=== PATIENT | female | born 1985 | race Caucasian/White ===

== ENCOUNTER 2017-05-18 11:52 | Emergency (ER) | payer MEDICAID ==
[~2017-05-18] VITALS: Ht 152.4 cm; Wt 81.6 kg
[~2017-05-18 11:52] MED LIST: BUPR75TA4
[2017-05-18] MEDS ORDERED: KETOROLAC TROMETH 60MG/2ML VIAL IM ONE (14:45)
[2017-05-18 14:50] VITALS: BP 136/98
== END 2017-05-18 15:20 | disposition home or self-care (01) ==
LOC: ER 11:52
DX: K04.7 Periapical abscess without sinus (principal); F17.210 Nicotine dependence, cigarettes, uncomplicated; Z83.3 Family history of diabetes mellitus; Z82.49 Family history of ischemic heart disease and other diseases of the circulatory system
CPT/HCPCS: 96372; 99283; J1885

== ENCOUNTER 2024-02-22 22:13 | Inpatient (IN) | payer MEDICAID, OTHER ==
[~2024-02-22] VITALS: Ht 152.4 cm; Wt 77.6 kg
--- NOTE | 2024-02-22 22:43 | ED.PDOC ---
GI ASSESSMENT HPI Comments 38-year-old female came to ER due to the abdominal pain. Patient was apparently well until 12 noon today, when patient developed sudden onset epigastric abdominal pain in, sharp, intermittent, radiatong to both her flanks and to her back. Noted to have nausea, vomiting, with multiple episodes of diarrhea. Denies any history of abdominal surgeries Chief Complaint: Abdominal Pain Time Seen by MD: 22:42 Primary Care Provider: AUDIE Boo Notes: Nurses Notes Allergies: Coded Allergies: NO KNOWN ALLERGIES (Unverified , 08/23/10) Home Meds Reported Medications Bupropion Hcl (Wellbutrin) 75 Mg Tab 01/19/12 Information Source: Patient Mode of Arrival: Ambulatory Timing: Hours Duration: Intermittent Quality: Aching Vomitus: Watery Stool: Loose, Watery Recent: None Recent Hx of: None Pain Location: Epigastric Associated sign and symptoms: Nausea, Vomiting, Diarrhea, Abdominal Pain, Other (back pain) Past Medical History PAST MEDICAL HISTORY: Anxiety, Depression, HTN Surgical History: Tubal Ligation NOZZLEMAN History: No Pertinent NOZZLEMAN History Family History Family History: No family hx of Cancer, No family hx of DM, No family hx of HTN Social History Smoker: Cigarettes, Less Than 1 Pack/Day Alcohol: Occasionally Drugs: Denies Drug Use Lives In: Home Constitutional: reports: diaphoresis, weakness; denies: chills, fatigue, fever, malaise, sweats, others EENTM: denies: blurred vision, double vision, ear bleeding, ear discharge, ear drainage, ear pain, ear ringing, eye pain, eye redness, hearing loss, mouth pain, mouth swelling, nasal discharge, nose bleeding, nose congestion, nose pain, photophobia, tearing, throat pain, throat swelling, voice changes, others Respiratory: denies: cough, hemoptysis, orthopnea, SOB at rest, shortness of breath, SOB with excertion, stridor, wheezing, others Cardiovascular: denies: chest pain, dizzy spells, diaphoresis, Dyspnea on exertion, edema, irregular heart beat, left arm pain, lightheadedness, palpitations, PND, syncope, others Gastrointestinal: reports: abdominal pain, diarrhea, nausea, vomiting; denies: abdomen distended, blood streaked bowels, constipated, dysphagia, difficulty swallowing, hematemesis, melena, poor appetite, poor fluid intake, rectal bleeding, rectal pain, others Genitourinary: denies: abnormal vagina bleeding, burning, dyspareunia, dysuria, flank pain, frequency, hematuria, incontinence, pain, , vagina discharge, urgency, others Neurological: denies: dizziness, fainting, headache, left sided numbness, left sided weakness, numbness, paresthesia, pre-existing deficit, right sided numbness, right sided weakness, seizure, speech problems, tingling, tremors, weakness, others Musculoskeletal: denies: back pain, gout, joint pain, joint swelling, muscle pain, muscle stiffness, neck pain, others Integumetry: denies: bruises, change in color, change in hair/nails, dryness, laceration, lesions, lumps, rash, wounds, others Allergic/Immunocompromised: denies: Difficulty Healing, Frequent Infections, Hives, Itching, others Hematologic/Lymphatic: denies: anemia, blood clots, easy bleeding, easy bruising, swollen glands, others Endocrine: denies: excessive hunger, excessive sweating, excessive thirst, excessive urination, flushing, intolerance to cold, intolerance to heat, unexplained weight gain, unexplained weight loss, others Psychiatric: denies: anxiety, bipolar disorder, depression, hopeless, panic disorder, schizophrenia, sleepless, suicidal, others Physical Exam General Appearance: Moderate Distress, Normal HEENT: Normal ENT Inspection, Pharynx Normal, TMs Normal Neck: Full Range of Motion, Non-Tender, Normal, Normal Inspection Respiratory: Chest Non-Tender, Lungs Clear, No Accessory Muscle Use, No Respiratory Distress, Normal Breath Sounds Cardiovascular: No Edema, No JVD, No Murmur, No Gallop, Normal Peripheral Pulses, Tachycardia Breast Exam: Deferred Gastrointestinal: Epigastric, No Organomegaly, No Pulsatile Mass, Normal Bowel Sounds, Soft, Tenderness Genitalia: Deferred Pelvic: Deferred Rectal: Deferred Extremities: No calf tenderness, Normal capillary refill, Normal inspection, Normal range of motion, Non-tender, No pedal edema Musculoskeletal : Apperance: Normal Neurologic: Alert, broadcast maintenance engineer II-XII nml as Tested, No Motor Deficits, Normal Affect, Normal Mood, No Sensory Deficits Cerebellar Function: Normal Reflexes: Normal Skin: Dry, Normal Color, Warm Peripheral Pulses: 3+ Radial (R), 3+ Radial (L) Lymphatic: No Adenopathy Was a procedure done? Was a procedure done?: No GI differential Dx Differential Diagnosis: Cholecystitis, Constipation, Diverticular disease, Gastritis/PUD, Gastroenteritis, Pancreatitis, UTI, Urolithiasis X-Ray, Labs, Meds, VS Vital Signs Date Time Temp Pulse Resp B/P (MAP) Pulse Ox O2 Delivery O2 Flow Rate FiO2 02/23/24 06:46 129 18 99 Room Air 02/23/24 06:44 98.6 129 18 157/114 (128) 99 98.6 02/23/24 02:00 98.6 128 16 149/112 (124) 96 98.6 02/23/24 02:00 128 16 96 Room Air* 0 21 02/22/24 22:25 97.7 129 13 135/100 (112) 100 Lab Test 02/23/24 03:15 02/22/24 22:56 02/22/24 22:44 Range/Units Urine Color Light-yellow Yellow Urine Clarity Clear Clear Urine pH 5.5 5.0-9.0 Urine Specific Har[place] > 1.035 H 1.001-1.035 Urine Protein Negative Negative Urine Ketones Negative Negative Urine Blood Negative Negative /uL Urine Nitrite Negative Negative Urine Bilirubin Negative Negative Urine Urobilinogen Normal Negative mg/dL Urine Leukocyte Esterase Negative Negative /uL Urine RBC 3 0 - 4 /hpf Urine WBC 1 0 - 5 /hpf Urine Squamous Epithelial Cells Few <5 /hpf Urine Bacteria None seen None Seen /hpf Urine Glucose Normal Normal mg/dL Urine Test Negative Negative White Blood Count 18.1 H 4.4-10.8 10^3/uL Red Blood Count 4.93 4.0-5.20 10^6/uL Hemoglobin 14.5 12.2-16.2 g/dL Hematocrit 45.3 36.0-46.0 % Mean Corpuscular Volume 91.9 80.0-100.0 fL Mean Corpuscular Hemoglobin 29.5 28.0-32.0 pg Mean Corpuscular Hemoglobin Concent 32.1 32.0-36.0 g/dL Red Cell Distribution Width 16.0 H 11.8-14.3 % Platelet Count 358 140-450 10^3/uL Mean Platelet Volume 7.1 6.9-10.8 fL Neutrophils (%) (Auto) 94.5 H 37.0-80.0 % Lymphocytes (%) (Auto) 2.2 L 10.0-50.0 % Monocytes (%) (Auto) 2.9 0.0-12.0 % Eosinophils (%) (Auto) 0.2 0.0-7.0 % Basophils (%) (Auto) 0.2 0.0-2.0 % Neutrophils # (Auto) 17.1 H 1.6-8.6 10 ^3/uL Lymphocytes # (Auto) 0.4 0.4-5.4 10 ^3/uL Monocytes # (Auto) 0.5 0-1.3 10 ^3/uL Eosinophils # (Auto) 0 0-0.8 10 ^3/uL Basophils # (Auto) 0 0-0.2 10 ^3/uL Nucleated Red Blood Cells 0.0 % Sodium Level 141 136-145 mmol/L Potassium Level 3.7 3.5-5.1 mmol/L Chloride Level 114 H 98-107 mmol/L Carbon Dioxide Level 20 20-31 mmol/L Anion Gap 7 5-15 Blood Urea Nitrogen 10 9-23 mg/dL Creatinine 0.92 0.550-1.02 mg/dL Glomerular Filtration Rate Calc 81 >90 mL/min BUN/Creatinine Ratio 10.9 10.0-20.0 Serum Glucose 120 H 74-106 mg/dL Lactic Acid Level 1.9 0.4-2.0 mmol/L Calcium Level 10.4 8.7-10.4 mg/dL Total Bilirubin 0.7 0.2-1.0 mg/dL Aspartate Amino Transferase (AST) 14 13-40 U/L Alanine Aminotransferase (ALT) 17 7-40 U/L Alkaline Phosphatase 94 46-116 U/L Total Protein 7.4 5.7-8.2 g/dL Albumin 4.7 3.2-4.8 g/dL Lipase 32 12-53 U/L Influenza Type A Antigen Negative Negative Influenza Type B Antigen Negative Negative SARS-CoV-2 Antigen (Rapid) Negative NEGATIVE Current Medications Medications (Trade) Dose Ordered Sig/Samuel Route Start Time Stop Time Status Last Admin Sodium Chloride 1,000 ml @ 1,000 mls/hr Q1H ONCE IV 02/22/24 22:45 02/22/24 23:44 DC 02/23/24 02:15 Pantoprazole Sodium (Protonix) 40 mg ONCE ONCE IV 02/22/24 22:45 02/22/24 22:46 DC 02/23/24 02:14 Ondansetron HCl (Zofran) 4 mg ONCE ONCE IV 02/22/24 22:45 02/22/24 22:46 DC 02/23/24 02:14 Ketorolac Tromethamine (Toradol Injection) 15 mg ONCE ONCE IV 02/22/24 22:45 02/22/24 22:46 DC 02/23/24 02:14 Patient alert. Complaining of abdominal pain. Continues to have pain. Vitals stable. Answering all questions. Evaluated the patient. Abdomen is soft diffusely tender. Lactic acid within normal limits. Lipase within normal limits. WBC elevated. Hemoglobin within normal limits. CT scan reviewed shows colitis. Was given Rocephin. Was given Flagyl. Reviewed her previous history. Explained to the patient. Time of 1ST Reevaluation: 22:37 Reevaluation 1ST: Unchanged Patient Education/Counseling: Diagnosis, Treatment, Prognosis Family Education/Counseling: No Family Present Departure 1 Departure Time of Disposition: 07:05 Impression: Primary Impression: Acute abdominal pain Additional Impression: Non-specific colitis Disposition: ADMITTED INPATIENT Admit to: Med Surg Condition: Guarded Critical Care Note Critical Care Time?: No Stability Stability form required: No Heart Score Heart Score: Heart Score Response (Comments) Value History N/A 0 EKG N/A 0 Age N/A 0 Risk Factors N/A 0 Troponin N/A 0 Total 0 I personally scribed for CESAR FLORES MD ([email or web address]) on 02/22/24 at 22:43. Electronically submitted by Oniel Martin ([email or web address]). CESAR FLORES MD Feb 22, 2024 22:43 IVONNE DASILVA MD Feb 23, 2024 07:05
[2024-02-22 23:14] LABS: Rapid Influenza A Negative (Negative); Rapid Influenza B Negative (Negative)
[2024-02-22 23:15] LABS: COVID19 ANTIGEN SOFIA FIA NEGATIVE (NEGATIVE)
[2024-02-22 23:19] LABS: Basophils # (auto) 0 10 ^3/uL (0-0.2); Basophils % (auto) 0.2 % (0.0-2.0); Eosinophils # (auto) 0 10 ^3/uL (0-0.8); Eosinophils % (auto) 0.2 % (0.0-7.0); Hematocrit 45.3 % (36.0-46.0); Hemoglobin 14.5 g/dL (12.2-16.2); Lymphocytes # (auto) 0.4 10 ^3/uL (0.4-5.4); Lymphocytes % (auto) 2.2 % (10.0-50.0); Mean Corpuscular Hemoglobin 29.5 pg (28.0-32.0); Mean Corpuscular Hgb Conc. 32.1 g/dL (32.0-36.0); Mean Corpuscular Volume 91.9 fL (80.0-100.0); Monocytes # (auto) 0.5 10 ^3/uL (0-1.3); Monocytes % (auto) 2.9 % (0.0-12.0); Neutrophils # (auto) 17.1 10 ^3/uL (1.6-8.6); Neutrophils % (auto) 94.5 % (37.0-80.0); Platelet Count (auto) 358 10^3/uL (140-450); Red Blood Cells 4.93 10^6/uL (4.0-5.20); White Blood Cell 18.1 10^3/uL (4.4-10.8)
[2024-02-22 23:40] LABS: Alanine Aminotransferase 17 U/L (7-40); Albumin 4.7 g/dL (3.2-4.8); Alkaline Phosphatase 94 U/L (46-116); Aspartate Aminotransferase 14 U/L (13-40); BUN/Creatinine Ratio 10.9 (10.0-20.0); Blood Urea Nitrogen 10 mg/dL (9-23); Calcium 10.4 mg/dL (8.7-10.4); Carbon Dioxide 20 mmol/L (20-31); Glucose 120 mg/dL (74-106); Lipase 32 U/L (12-53)
[2024-02-22 23:41] LABS: Bilirubin, Total 0.7 mg/dL (0.2-1.0); Total Protein 7.4 g/dL (5.7-8.2)
[2024-02-23] VITALS (7 sets, daily range): BP systolic 123–144; BP diastolic 60–90; PULSE 106–132; RESP 16–18; TEMP 98.6–100.9; O2SAT 96–97
[2024-02-23 00:49] LABS: Anion Gap 7 (5-15); Chloride 114 mmol/L (98-107); Potassium 3.7 mmol/L (3.5-5.1); Sodium 141 mmol/L (136-145)
[2024-02-23] MEDS: ONDANSETRON HCL 4 MG/2 ML VIAL IV ONE (02:14)
[2024-02-23] MEDS: KETOROLAC TROMETH 30 MG/ML 1ML VIAL IV ONE (02:14)
[2024-02-23] MEDS: PANTOPRAZOLE 40 MG/10 ML VIAL INJ IV ONE (02:14)
[2024-02-23] MEDS: SODIUM CHLORIDE 0.9% 1,000 ML IV ONE ×3 (02:15→07:29)
[2024-02-23] MEDS: IOHEXOL 300 MG/ML 100ML BOTTLE IJ ONE (03:23)
[2024-02-23 04:26] LABS: Urine Bacteria None Seen /hpf (None Seen)
[2024-02-23 04:53] LABS: Urine Blood Negative /uL (Negative); Urine Clarity Clear (Clear); Urine Color Light-Yellow (Yellow); Urine Protein, UAD Negative (Negative); Urine Urobilinogen Normal (Negative); Urine WBC 1 /hpf (0 - 5); Urine pH 5.5 (5.0-9.0)
--- NOTE | 2024-02-23 05:29 | DVH ---
EXAM: XY CHEST TWO VIEWS ROUTINE CLINICAL HISTORY: fever COMPARISON: None TECHNIQUE: Frontal and lateral view of the chest was obtained FINDINGS: Lines and Tubes: None Lungs: No focal consolidation. Pleura: No effusion. No pneumothorax. Cardiomediastinal contours: Unremarkable Bones: No acute osseous abnormality. IMPRESSION: No acute cardiopulmonary disease.
[2024-02-23 05:48] LABS: Urine Specific Gravity > 1.035 (1.001-1.035)
--- NOTE | 2024-02-23 05:50 | DVH ---
Exam: CT CT AB PEL WITH IV CON ONLY History: abdominal pain Comparison Study: None available at time of dictation. TECHNIQUE: Multidetector CT of the abdomen was performed from lung bases to pubic symphysis. Imaging was performed without IV contrast. Axial, coronal and sagittal multiplanar reformats were obtained fr om the axial data set by the technologist. Radiation Dose : 1. Abdomen/Pelvis: CTDIvol 11.3 mGy, DLP 620.7 mGy*cm. FINDINGS: Evaluation of solid organs is limited due to lack of intravenous contrast use. Findings: Lung Bases: No acute or significant lung base finding. Normal heart size. No pleural or pericardial effusion. Liver: The liver is normal in size. No focal lesions. Gallbladder and Biliary Tree: Gallstones. Spleen: Unremarkable Pancreas: The pancreas is grossly normal in appearance. Adrenal Glands: Unremarkable Kidneys: Kidneys are grossly normal without calculi or hydronephrosis. Bladder: Grossly unremarkable for degree of distention. Bowel: Mild wall thickening of the small bowel and colon with fluid-filled loops. The appendix is not visualized. No inflammatory changes are visualized in the right lower quadrant. Ascites: Absent Lymphadenopathy: No mesenteric, retroperitoneal or periportal lymphadenopathy. Abdominal Wall and Mesentery: Unremarkable. Vasculature: The visualized abdominal aorta is normal in size and caliber. Evaluation of abdominal a nd pelvic vessels is limited due to lack of intravenous contrast. Pelvic Organs: Unremarkable Musculoskeletal: No aggressive focal bony lesions, acute fractures or dislocation. Soft tissues: Unremarkable IMPRESSION: Findings suggestive of enteritis / colitis. Radiation optimization: All CT scans at this facility use at least one of these dose optimization risih hniques: automated exposure control mA and/or kV adjustment per patient size (includes targeted exam s where dose is matched to clinical indication) or iterative reconstruction.
[2024-02-23] MEDS: cefTRIAXone 1GM/50ML D5W 50 ML IV ONE (07:30)
[2024-02-23] MEDS: metroNIDAZOLE 500MG/100ML 100 ML IV ONE (08:14)
[2024-02-23] MEDS ORDERED: MORPHINE SULFATE INJ 2 MG/ml SYRG IV PRN (09:15)
[2024-02-23] MEDS ORDERED: ACETAMINOPHEN 325 MG TAB PO PRN (09:15)
[2024-02-23] MEDS ORDERED: HYDROcodone-ACET 5/325MG TAB PO PRN (09:15)
[2024-02-23] MEDS ORDERED: hydrALAZINE HCL 20 MG/ML VL IV PRN (09:15)
--- NOTE | 2024-02-23 09:22 | DVHHP2 ---
History of Present Illness Reason for Visit: Abdominal pain History of Present Illness This 38-year-old female presents in the ED with a chief complaint of abdominal pain. Patient reports generalized abdominal pain started yesterday and is associated with nausea, vomiting, and diarrhea. The patient denies chest pain, shortness of breath, hematemesis, or melena. Past medical history of hypertension, anxiety, depression, and tobacco use. Past Medical History As stated in HPI Past Surgical History Tubal ligation Family History Reviewed, non-contributory to the management of this case. Smoke: <1 pack per day ALCOHOL: none Drugs: None Lives: with Family Review of Systems Constitutional: Yes: Malaise; No: Fever, Chills, Sweats, Weakness, Other Eyes: No: Pain, Vision change, Conjunctivae inflammation, Eyelid inflammation, Other, Redness ENT: No: Ear pain, Ear discharge, Nose pain, Nose discharge, Nose congestion, Mouth pain, Mouth swelling, Throat pain, Throat swelling, Other Respiratory: No: Cough, Dry, Shortness of breath, SOB with excertion, Wheezing, Hemoptysis, Pleuritic Pain, Sputum, Wheezing, Other Cardiovascular: No: Chest Pain, Palpitations, Orthopnea, Paroxysmal Noc. Dyspnea, Edema, Lt Headedness, Other Gastrointestinal: Nausea, Vomiting, Abdominal Pain, Diarrhea; No: Constipation, Melena, Hematochezia, Other Genitourinary: No Dysuria, No Frequency, No Incontinence, No Hematuria, No Retention, No Other Musculoskeletal: No: other, neck pain, shoulder pain, arm pain, back pain, hand pain, leg pain, foot pain Skin: No: Rash, Lesions, Jaundice, Bruising, Other Neurological: No: Weakness, Numbness, Incoordination, Change in speech, Confusion, Seizures, Other Allergies: Coded Allergies: NO KNOWN ALLERGIES (Unverified , 08/23/10) Exam Vital Signs Vital Signs Date Time Temp Pulse Resp B/P (MAP) Pulse Ox O2 Delivery O2 Flow Rate FiO2 02/23/24 07:54 111 16 97 Room Air 02/23/24 07:54 98.1 156/104 (121) 98.1 02/23/24 02:00 0 21 General Appearance: Alert, Oriented X3, Cooperative, mild distress HEENT: Atraumatic, PERRLA, Mucous membr. moist/pink Respiratory: Clear to auscultation, Normal air movement Cardiovascular: Regular rate, Normal S1, Normal S2 Abdominal: Normal bowel sounds, Soft, Other (Generalized tenderness in palpation) Extremities: No clubbing, No cyanosis, No edema, Normal pulses Skin: No rashes, No breakdown, No significant lesion Neuro: Normal gait, Normal speech, Strength at 5/5 X4 ext, Normal tone Psych/Mental Status: Mental status NL Labs/Xrays Labs Test 02/23/24 03:15 02/22/24 22:56 02/22/24 22:44 Range/Units Urine Color Light-yellow Yellow Urine Clarity Clear Clear Urine pH 5.5 5.0-9.0 Urine Specific [place] > 1.035 H 1.001-1.035 Urine Protein Negative Negative Urine Ketones Negative Negative Urine Blood Negative Negative /uL Urine Nitrite Negative Negative Urine Bilirubin Negative Negative Urine Urobilinogen Normal Negative mg/dL Urine Leukocyte Esterase Negative Negative /uL Urine RBC 3 0 - 4 /hpf Urine WBC 1 0 - 5 /hpf Urine Squamous Epithelial Cells Few <5 /hpf Urine Bacteria None seen None Seen /hpf Urine Glucose Normal Normal mg/dL Urine Test Negative Negative White Blood Count 18.1 H 4.4-10.8 10^3/uL Red Blood Count 4.93 4.0-5.20 10^6/uL Hemoglobin 14.5 12.2-16.2 g/dL Hematocrit 45.3 36.0-46.0 % Mean Corpuscular Volume 91.9 80.0-100.0 fL Mean Corpuscular Hemoglobin 29.5 28.0-32.0 pg Mean Corpuscular Hemoglobin Concent 32.1 32.0-36.0 g/dL Red Cell Distribution Width 16.0 H 11.8-14.3 % Platelet Count 358 140-450 10^3/uL Mean Platelet Volume 7.1 6.9-10.8 fL Neutrophils (%) (Auto) 94.5 H 37.0-80.0 % Lymphocytes (%) (Auto) 2.2 L 10.0-50.0 % Monocytes (%) (Auto) 2.9 0.0-12.0 % Eosinophils (%) (Auto) 0.2 0.0-7.0 % Basophils (%) (Auto) 0.2 0.0-2.0 % Neutrophils # (Auto) 17.1 H 1.6-8.6 10 ^3/uL Lymphocytes # (Auto) 0.4 0.4-5.4 10 ^3/uL Monocytes # (Auto) 0.5 0-1.3 10 ^3/uL Eosinophils # (Auto) 0 0-0.8 10 ^3/uL Basophils # (Auto) 0 0-0.2 10 ^3/uL Nucleated Red Blood Cells 0.0 % Sodium Level 141 136-145 mmol/L Potassium Level 3.7 3.5-5.1 mmol/L Chloride Level 114 H 98-107 mmol/L Carbon Dioxide Level 20 20-31 mmol/L Anion Gap 7 5-15 Blood Urea Nitrogen 10 9-23 mg/dL Creatinine 0.92 0.550-1.02 mg/dL Glomerular Filtration Rate Calc 81 >90 mL/min BUN/Creatinine Ratio 10.9 10.0-20.0 Serum Glucose 120 H 74-106 mg/dL Lactic Acid Level 1.9 0.4-2.0 mmol/L Calcium Level 10.4 8.7-10.4 mg/dL Total Bilirubin 0.7 0.2-1.0 mg/dL Aspartate Amino Transferase (AST) 14 13-40 U/L Alanine Aminotransferase (ALT) 17 7-40 U/L Alkaline Phosphatase 94 46-116 U/L Total Protein 7.4 5.7-8.2 g/dL Albumin 4.7 3.2-4.8 g/dL Lipase 32 12-53 U/L Influenza Type A Antigen Negative Negative Influenza Type B Antigen Negative Negative SARS-CoV-2 Antigen (Rapid) Negative NEGATIVE PROCEDURE(s): ABPLIV - CT AB PEL WITH IV CON ONLY REASON: abdominal pain ORDER NUMBER(s): [id number], ACCESSION NUMBER(s): [id number] Exam: CT CT AB PEL WITH IV CON ONLY History: abdominal pain Comparison Study: None available at time of dictation. TECHNIQUE: Multidetector CT of the abdomen was performed from lung bases to pubic symphysis. Imaging was performed without IV contrast. Axial, coronal and sagittal multiplanar reformats were obtained from the axial data set by the technologist. Radiation Dose : 1. Abdomen/Pelvis: CTDIvol 11.3 mGy, DLP 620.7 mGy*cm. FINDINGS: Evaluation of solid organs is limited due to lack of intravenous contrast use. Findings: Lung Bases: No acute or significant lung base finding. Normal heart size. No pleural or pericardial effusion. Liver: The liver is normal in size. No focal lesions. Gallbladder and Biliary Tree: Gallstones. Spleen: Unremarkable Pancreas: The pancreas is grossly normal in appearance. Adrenal Glands: Unremarkable Kidneys: Kidneys are grossly normal without calculi or hydronephrosis. Bladder: Grossly unremarkable for degree of distention. Bowel: Mild wall thickening of the small bowel and colon with fluid-filled loops. The appendix is not visualized. No inflammatory changes are visualized in the right lower quadrant. Ascites: Absent Lymphadenopathy: No mesenteric, retroperitoneal or periportal lymphadenopathy. Abdominal Wall and Mesentery: Unremarkable. Vasculature: The visualized abdominal aorta is normal in size and caliber. Evaluation of abdominal and pelvic vessels is limited due to lack of intravenous contrast. Pelvic Organs: Unremarkable Musculoskeletal: No aggressive focal bony lesions, acute fractures or dislocation. Soft tissues: Unremarkable IMPRESSION: Findings suggestive of enteritis / colitis. Assessment/Plan Assessment/Plan #Acute abdominal pain possible colitis # nausea, vomiting, diarrhea Admit to medical unit Clear liquid diet advance as tolerated Empiric antibiotic ceftriaxone metronidazole PPI for prophylaxis Stool for culture and cdiff Blood culture Antiemetics IV fluid # accelerated hypertension, not on antihypertensive medication Started on Lisinopril 20mg, aspirin 81mg Hydralazine PRN # anxiety/depression Continue Wellbutrin # ?Medical noncompliance Counseled # nicotine dependence Nicotine patch Smoking cessation counseled Medical plan discussed with patient and RN Plan discussed with: Patient My Orders 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 Procedure Category Date Status Time Admit ADMIT 02/23/24 Verified 09:14 Code Status CODE 02/23/24 Verified 09:14 Hydrocodone-Acet PHA 02/23/24 Verified 5/325mg Tab ([place] 09:15 Ondansetron Hcl PHA 02/23/24 Verified (Zofran) 09:15 Complete Blood Count LAB 02/24/24 Verified 04:00 Comprehensive LAB 02/24/24 Verified Metabolic Panel 04:00 Condition: Fair PEMA 02/23/24 Verified 09:14 Acetaminophen Tablet PHA 02/23/24 Verified (Tylenol Tablet) 09:15 Clear Liq Diet DIET 02/23/24 Verified Breakfast Morphine Sulfate PHA 02/23/24 Verified Injection 09:15 Hydralazine Injection PHA 9/29/24 Verified (Apresoline Inject 09:15 Hydralazine Injection PHA 02/23/24 Verified (Apresoline Inject 09:15 Pantoprazole PHA 02/23/24 Verified (Protonix) 10:00 Stool Bacterial TATIANA 02/23/24 Verified Culture 09:14 Clostridium Difficile TATIANA 02/23/24 Verified Toxin 09:14 Blood Culture TATIANA 02/23/24 Verified 09:14 Ceftriaxone Ivpb PHA 02/24/24 Verified Rocephin 09:00 Metronidazole Ivpb PHA 02/23/24 Verified Flagyl 14:00 Electrocardigram EKG 02/23/24 Verified 09:14 Lipid Panel LAB 02/23/24 Verified 09:14 Hemoglobin A1c LAB 02/23/24 Verified 09:14 Thyroid Stimulating LAB 02/23/24 Verified Hormone 09:14 Bupropion Tablet PHA 02/23/24 Verified (Wellbutrin Tablet) 10:00 Date of Service: Feb 23, 2024 Billing Provider: CARLITOS YOUNG Common Visit Codes: [id number] INP/OBS CARE (HIGH) CARLITOS YOUNG Feb 23, 2024 09:22
[2024-02-23] MEDS: MORPHINE SULFATE 4 MG/ML SYR/VIAL IV ONE (09:25)
[2024-02-23] MEDS: ONDANSETRON HCL 4 MG/2 ML VIAL IV PRN (09:29)
[2024-02-23] MEDS: hydrALAZINE HCL 20 MG/ML VL IV ONE (10:10)
[2024-02-23 10:31] LABS: Triglycerides 72 mg/dL (< 150)
[2024-02-23 10:32] LABS: HDL Cholesterol 66 mg/dL (40-59); LDL Cholesterol 77 mg/dL (< 100)
[2024-02-23 10:33] LABS: Cholesterol 154 mg/dL (< 200)
[2024-02-23] MEDS: LISINOPRIL 20 MG TAB PO ONE (10:45)
[2024-02-23] MEDS: buPROPion HCL 75 MG TAB PO SCH (10:45)
[2024-02-23] MEDS: NICOTINE 7MG/24HR TOPICAL PATCH TD ONE (10:46)
[2024-02-23] MEDS: PANTOPRAZOLE 40 MG/10 ML VIAL INJ IV SCH (10:59)
[2024-02-23] MEDS: SOD CHL 0.45% 1,000 ML IV SCH (12:12)
[2024-02-23] MEDS: metroNIDAZOLE 500MG/100ML 100 ML IV SCH (15:14)
[2024-02-24 08:00] VITALS: RESP 16
[2024-02-24 09:00] VITALS: BP 122/86; PULSE 117; RESP 18; TEMP 99; O2SAT 97
[2024-02-24] MEDS: cefTRIAXone 1GM/50ML D5W 50 ML IV SCH (09:00)
[2024-02-24] MEDS: ASPirin 81 mg TAB PO SCH (09:01)
[2024-02-24] MEDS: LISINOPRIL 20 MG TAB PO SCH (09:01)
[2024-02-24] MEDS: NICOTINE 7MG/24HR TOPICAL PATCH TD SCH (09:01)
[2024-02-24 13:00] VITALS: BP 126/88; PULSE 98; RESP 18; TEMP 97.9; O2SAT 94
--- NOTE | 2024-02-24 15:24 | DVHPN2 ---
Subjective PATIENT DENIES ANY SYMPTOMS AT THIS TIME. Reviewed: Care Plan, H&P, Labs, Medications Changes from previous H/P or p: No Changes General: Per HPI Eyes: No Pain, No Vision change, No Conjunctivae inflammation, No Eyelid inflammation, No Other, No Redness ENT: No Ear pain, No Ear discharge, No Nose pain, No Nose discharge, No Nose congestion, No Mouth pain, No Mouth swelling, No Throat pain, No Throat swelling, No Other Cardiovascular: No Chest Pain, No Palpitations, No Orthopnea, No Paroxysmal Noc. Dyspnea, No Edema, No Lt Headedness, No Other Respiratory: No Cough, No Dry, No Shortness of breath, No SOB with excertion, No Wheezing, No Hemoptysis, No Pleuritic Pain, No Sputum, No Other Gastrointestinal: Nausea, Vomiting, Abdominal Pain, Diarrhea; No Constipation, No Melena, No Hematochezia, No Other Genitourinary: No Dysuria, No Frequency, No Incontinence, No Hematuria, No Retention, No Other Musculoskeletal: No other, No neck pain, No shoulder pain, No arm pain, No back pain, No hand pain, No leg pain, No foot pain Skin: No Rash, No Lesions, No Jaundice, No Bruising, No Other Objective Vitals Vital Signs Date Time Temp Pulse Resp B/P (MAP) Pulse Ox O2 Delivery O2 Flow Rate FiO2 02/24/24 13:00 97.9 98 18 126/88 (101) 94 97.9 02/24/24 08:00 Room Air* 0 21 Intake/Output Intake and Output 02/24/24 07:00 Intake Total 4400 ml Balance 4400 ml Intake Oral 1000 ml IV Total 3400 ml # Voids 2 # Bowel Movements 1 General Appearance: Alert, Oriented X3, Cooperative, No acute distress, mild distress HEENT: Atraumatic, PERRLA Lungs: Clear to auscultation, Normal air movement Cardiovascular: Normal S1, Normal S2 Abdomen: Normal bowel sounds Neuro: Normal gait, Normal speech Psych/Mental Status: Mental status NL, Mood NL Medications Current Medications Medications Dose Ordered Sig/Samuel Route Start Time Stop Time Status Last Admin Dose Admin Acetaminophen/ Hydrocodone Bitart 1 tab Q4HP PRN PO 02/23/24 09:15 Ondansetron HCl 4 mg Q4HP PRN IV 02/23/24 09:15 02/23/24 09:29 4 MG Acetaminophen 650 mg Q6HP PRN PO 02/23/24 09:15 Morphine Sulfate 2 mg Q4HPRN PRN IV 02/23/24 09:15 Hydralazine HCl 10 mg Q6HP PRN IV 02/23/24 09:15 Pantoprazole Sodium 40 mg DAILY IV 02/23/24 10:00 02/24/24 09:00 40 MG Ceftriaxone Sodium 50 ml @ 100 mls/hr DAILY@09 IV 02/24/24 09:00 02/24/24 09:00 100 MLS/HR Metronidazole 100 ml @ 100 mls/hr Q8HR IV 02/23/24 14:00 02/24/24 14:53 100 MLS/HR Bupropion HCl 75 mg DAILY PO 02/23/24 10:00 02/23/24 10:45 75 MG Sodium Chloride 1,000 ml @ 100 mls/hr Q10H IV 02/23/24 09:30 02/24/24 14:57 100 MLS/HR Lisinopril 20 mg DAILY PO 02/24/24 10:00 02/24/24 09:01 20 MG Aspirin 81 mg DAILY PO 02/24/24 10:00 02/24/24 09:01 81 MG Nicotine 1 patch DAILY TD 02/24/24 10:00 02/24/24 09:01 1 PATCH Laboratory Results Laboratory Tests 02/22/24 22:56 Urinalysis Test 02/23/24 03:15 Urine Color Light-yellow (Yellow) Urine Clarity Clear (Clear) Urine pH 5.5 (5.0-9.0) Urine Specific [place] > 1.035 (1.001-1.035) Urine Protein Negative (Negative) Urine Ketones Negative (Negative) Urine Blood Negative /uL (Negative) Urine Nitrite Negative (Negative) Urine Bilirubin Negative (Negative) Urine Urobilinogen Normal mg/dL (Negative) Urine Leukocyte Esterase Negative /uL (Negative) Urine RBC 3 /hpf (0 - 4) Urine WBC 1 /hpf (0 - 5) Urine Squamous Epithelial Cells Few /hpf (<5) Urine Bacteria None seen /hpf (None Seen) Urine Glucose Normal mg/dL (Normal) Urine Test Negative (Negative) Microbiology Microbiology Date/Time Source Procedure Growth Status 02/23/24 10:00 Blood Blood Culture - Preliminary NO GROWTH AFTER 24 HOURS OF INCUBATION. Resulted Labs and/or images reviewed: Labs reviewed by me, Image(s) reviewed by me Assessment/Plan Assessment/Plan Impression: -enteritis/colitis -sepsis -tobacco abuse -primary hypertension -anxiety disorder -depression -obesity Plan: -continue antibiotic therapy with Rocephin and Flagyl -continue IV hydration -start clear liquid diet -stool culture -continue antihypertensives -patient may shower -repeat labs in a.m. Total time spent with patient discussing and formulating plan of care: 35 minutes. This medical document was created using an electronic medical record system with [employer] dictation system. Although this document has been carefully reviewed, there may still be some phonetic and typographical errors. These areas are purely typographical due to imperfections of the software programs, and do not reflect any compromise in the patient's medical care. Plan discussed with: Patient, Other (RN) My Orders Orders - SALINAS BROWN NP Procedure Category Date Status Time Clear Liq Diet DIET 02/24/24 Transmitted Dinner Drug Screen LAB 02/24/24 Logged 14:44 Basic Metabolic Panel LAB 02/25/24 Verified 04:00 Complete Blood Count LAB 02/24/24 Logged 14:44 May Shower PEMA 02/24/24 In Process 15:03 Date of Service: Feb 24, 2024 Billing Provider: SALINAS BROWN NP Common Visit Codes: [id number] INP/OBS CARE(HIGH) SALINAS BROWN NP Feb 24, 2024 15:24
[2024-02-24 16:37] LABS: Basophils # (auto) 0 10 ^3/uL (0-0.2); Basophils % (auto) 0.3 % (0.0-2.0); Eosinophils # (auto) 0 10 ^3/uL (0-0.8); Eosinophils % (auto) 0.3 % (0.0-7.0); Hematocrit 36.9 % (36.0-46.0); Hemoglobin 12.3 g/dL (12.2-16.2); Lymphocytes # (auto) 0.9 10 ^3/uL (0.4-5.4); Lymphocytes % (auto) 14.7 % (10.0-50.0); Mean Corpuscular Hemoglobin 30.1 pg (28.0-32.0); Mean Corpuscular Hgb Conc. 33.3 g/dL (32.0-36.0); Mean Corpuscular Volume 90.2 fL (80.0-100.0); Monocytes # (auto) 0.7 10 ^3/uL (0-1.3); Monocytes % (auto) 10.8 % (0.0-12.0); Neutrophils # (auto) 4.6 10 ^3/uL (1.6-8.6); Neutrophils % (auto) 73.9 % (37.0-80.0); Platelet Count (auto) 248 10^3/uL (140-450); Red Blood Cells 4.09 10^6/uL (4.0-5.20); Red Cell Distribution Width 15.5 % (11.8-14.3); White Blood Cell 6.3 10^3/uL (4.4-10.8)
[2024-02-24 17:00] VITALS: BP 126/84; PULSE 89; RESP 16; TEMP 97.9; O2SAT 97
[2024-02-24 21:00] VITALS: BP 136/87; PULSE 86; RESP 15; TEMP 98.2; O2SAT 97
[2024-02-25 01:00] VITALS: BP 120/77; PULSE 85; RESP 16; TEMP 98.1; O2SAT 96
[2024-02-25 07:38] LABS: Anion Gap 7 (5-15); Carbon Dioxide 23 mmol/L (20-31); Chloride 110 mmol/L (98-107); Potassium 3.2 mmol/L (3.5-5.1); Sodium 140 mmol/L (136-145)
[2024-02-25 07:40] LABS: Calcium 9.3 mg/dL (8.7-10.4)
[2024-02-25 07:44] LABS: Glucose 89 mg/dL (74-106)
[2024-02-25 07:45] LABS: BUN/Creatinine Ratio 7.5 (10.0-20.0); Blood Urea Nitrogen < 5 mg/dL (9-23)
[2024-02-25 08:00] VITALS: PULSE 88; RESP 20; O2SAT 96
[2024-02-25 09:00] VITALS: BP 122/80; PULSE 94; RESP 16; TEMP 98; O2SAT 98
--- NOTE | 2024-02-25 12:53 | DVHPN2 ---
Subjective Patient reports that abdominal pain has improved. Reviewed: Care Plan, H&P, Labs, Medications Changes from previous H/P or p: Changes General: Per HPI Eyes: No Pain, No Vision change, No Conjunctivae inflammation, No Eyelid inflammation, No Other, No Redness ENT: No Ear pain, No Ear discharge, No Nose pain, No Nose discharge, No Nose congestion, No Mouth pain, No Mouth swelling, No Throat pain, No Throat swelling, No Other Cardiovascular: No Chest Pain, No Palpitations, No Orthopnea, No Paroxysmal Noc. Dyspnea, No Edema, No Lt Headedness, No Other Respiratory: No Cough, No Dry, No Shortness of breath, No SOB with excertion, No Wheezing, No Hemoptysis, No Pleuritic Pain, No Sputum, No Other Gastrointestinal: Nausea, Vomiting, Abdominal Pain, Diarrhea; No Constipation, No Melena, No Hematochezia, No Other Genitourinary: No Dysuria, No Frequency, No Incontinence, No Hematuria, No Retention, No Other Musculoskeletal: No other, No neck pain, No shoulder pain, No arm pain, No back pain, No hand pain, No leg pain, No foot pain Skin: No Rash, No Lesions, No Jaundice, No Bruising, No Other Objective Vitals Vital Signs Date Time Temp Pulse Resp B/P (MAP) Pulse Ox O2 Delivery O2 Flow Rate FiO2 02/25/24 10:10 146/78 02/25/24 09:00 98.0 94 16 98 98.0 02/25/24 08:00 Room Air* 0 21 Intake/Output Intake and Output 02/25/24 06:59 Intake Total 4150 ml Balance 4150 ml Intake Oral 3000 ml IV Total 1150 ml # Voids 3 General Appearance: Alert, Oriented X3, Cooperative, No acute distress, mild distress HEENT: Atraumatic, PERRLA Lungs: Clear to auscultation, Normal air movement Cardiovascular: Normal S1, Normal S2 Abdomen: Normal bowel sounds Neuro: Normal gait, Normal speech Psych/Mental Status: Mental status NL, Mood NL Medications Current Medications Medications Dose Ordered Sig/Samuel Route Start Time Stop Time Status Last Admin Dose Admin Acetaminophen/ Hydrocodone Bitart 1 tab Q4HP PRN PO 02/23/24 09:15 Ondansetron HCl 4 mg Q4HP PRN IV 02/23/24 09:15 02/23/24 09:29 4 MG Acetaminophen 650 mg Q6HP PRN PO 02/23/24 09:15 Morphine Sulfate 2 mg Q4HPRN PRN IV 02/23/24 09:15 Hydralazine HCl 10 mg Q6HP PRN IV 02/23/24 09:15 Pantoprazole Sodium 40 mg DAILY IV 02/23/24 10:00 02/25/24 10:11 40 MG Ceftriaxone Sodium 50 ml @ 100 mls/hr DAILY@09 IV 02/24/24 09:00 02/25/24 10:10 100 MLS/HR Metronidazole 100 ml @ 100 mls/hr Q8HR IV 02/23/24 14:00 02/25/24 06:21 100 MLS/HR Bupropion HCl 75 mg DAILY PO 02/23/24 10:00 02/25/24 10:09 75 MG Sodium Chloride 1,000 ml @ 100 mls/hr Q10H IV 02/23/24 09:30 02/25/24 05:04 100 MLS/HR Lisinopril 20 mg DAILY PO 02/24/24 10:00 02/25/24 10:10 20 MG Aspirin 81 mg DAILY PO 02/24/24 10:00 02/25/24 10:09 81 MG Nicotine 1 patch DAILY TD 02/24/24 10:00 02/25/24 10:10 1 PATCH Laboratory Results Laboratory Tests 02/24/24 16:08 02/25/24 07:00 Chemistry Test 02/25/24 07:00 Calcium Level 9.3 mg/dL (8.7-10.4) Urinalysis Test 02/23/24 03:15 Urine Color Light-yellow (Yellow) Urine Clarity Clear (Clear) Urine pH 5.5 (5.0-9.0) Urine Specific [place] > 1.035 (1.001-1.035) Urine Protein Negative (Negative) Urine Ketones Negative (Negative) Urine Blood Negative /uL (Negative) Urine Nitrite Negative (Negative) Urine Bilirubin Negative (Negative) Urine Urobilinogen Normal mg/dL (Negative) Urine Leukocyte Esterase Negative /uL (Negative) Urine RBC 3 /hpf (0 - 4) Urine WBC 1 /hpf (0 - 5) Urine Squamous Epithelial Cells Few /hpf (<5) Urine Bacteria None seen /hpf (None Seen) Urine Glucose Normal mg/dL (Normal) Urine Test Negative (Negative) Microbiology Microbiology Date/Time Source Procedure Growth Status 02/23/24 10:00 Blood Blood Culture - Preliminary Resulted Labs and/or images reviewed: Labs reviewed by me, Image(s) reviewed by me Assessment/Plan Assessment/Plan Impression: -enteritis/colitis -sepsis ,? Sirs -tobacco abuse -primary hypertension -anxiety disorder -depression -obesity Plan: Events: Patient with improvement with WBC. Blood culture positive for Gram- positive cocci. Given patient afebrile with improved symptoms, as well as resolution of leukocytosis, probable contamination. We will wait for final results. -continue antibiotic therapy with Rocephin and Flagyl -stop IV fluids -advanced to cardiac diet -stool culture -continue antihypertensives -patient may shower Total time spent with patient discussing and formulating plan of care: 35 minutes. This medical document was created using an electronic medical record system with [employer] dictation system. Although this document has been carefully reviewed, there may still be some phonetic and typographical errors. These areas are purely typographical due to imperfections of the software programs, and do not reflect any compromise in the patient's medical care. Plan discussed with: Patient, Other (RN) My Orders Orders - SALINAS BROWN NP Procedure Category Date Status Time Clear Liq Diet DIET 02/24/24 Transmitted Dinner Drug Screen LAB 02/24/24 Logged 14:44 May Shower PEMA 02/24/24 In Process 15:03 Date of Service: Feb 25, 2024 Billing Provider: SALINAS BROWN NP Common Visit Codes: [id number] INP/OBS CARE(HIGH) SALINAS BROWN NP Feb 25, 2024 12:53
[2024-02-25 13:00] VITALS: BP 131/83; PULSE 82; RESP 18; TEMP 98; O2SAT 98
[2024-02-25 14:20] LABS: Amphetamine Screen, Urine Neg (NEGATIVE); Barbiturate Scree,Urine Neg (NEGATIVE); Benzodiazephine Screen, Urine Neg (NEGATIVE); Cannabinoid Screen, Urine Neg (NEGATIVE); Cocaine Screen, Urine Neg (NEGATIVE); Opiate Scree,Urine Neg (NEGATIVE); Phencyclidine Screen, Urine Neg (NEGATIVE)
[2024-02-25] MEDS: POTASSIUM CHL 20 Meq TABLET PO ONE (15:04)
[2024-02-25 16:47] VITALS: BP 127/86; PULSE 82; RESP 18; TEMP 98; O2SAT 97
[2024-02-25 21:00] VITALS: BP 130/78; PULSE 99; RESP 20; TEMP 98.3; O2SAT 95
[2024-02-26 05:00] VITALS: BP 149/89; PULSE 87; RESP 18; TEMP 98; O2SAT 96
[2024-02-26 08:00] VITALS: PULSE 78; RESP 18; O2SAT 96
[2024-02-26 09:00] VITALS: BP 143/88; PULSE 91; RESP 15; TEMP 98.1; O2SAT 98
[2024-02-26 13:00] VITALS: BP 140/98; PULSE 94; RESP 16; TEMP 97.8; O2SAT 98
--- NOTE | 2024-02-26 16:00 | DVHDS2 ---
Discharge Summary Date of Admission Feb 23, 2024 at 09:20 Date of Discharge: Feb 26, 2024 Admitting Diagnosis Sepsis secondary to acute colitis Labs/Diagnostic Data: Laboratory Results Test 02/25/24 12:30 02/25/24 07:00 02/24/24 16:08 02/23/24 10:00 Urine Opiates Screen Neg (NEGATIVE) Urine Fentanyl Screen Neg (NEGATIVE) Urine Barbiturates Screen Neg (NEGATIVE) Urine Phencyclidine Screen Neg (NEGATIVE) Urine Amphetamines Screen Neg (NEGATIVE) Urine Benzodiazepines Screen Neg (NEGATIVE) Urine Cocaine Screen Neg (NEGATIVE) Urine Cannabinoids Screen Neg (NEGATIVE) Sodium Level 140 mmol/L (136-145) Potassium Level 3.2 mmol/L (3.5-5.1) Chloride Level 110 mmol/L (98-107) Carbon Dioxide Level 23 mmol/L (20-31) Anion Gap 7 (5-15) Blood Urea Nitrogen < 5 mg/dL (9-23) Creatinine 0.67 mg/dL (0.550-1.02) Glomerular Filtration Rate Calc 113 mL/min (>90) BUN/Creatinine Ratio 7.5 (10.0-20.0) Serum Glucose 89 mg/dL (74-106) Calcium Level 9.3 mg/dL (8.7-10.4) White Blood Count 6.3 10^3/uL (4.4-10.8) Red Blood Count 4.09 10^6/uL (4.0-5.20) Hemoglobin 12.3 g/dL (12.2-16.2) Hematocrit 36.9 % (36.0-46.0) Mean Corpuscular Volume 90.2 fL (80.0-100.0) Mean Corpuscular Hemoglobin 30.1 pg (28.0-32.0) Mean Corpuscular Hemoglobin Concent 33.3 g/dL (32.0-36.0) Red Cell Distribution Width 15.5 % (11.8-14.3) Platelet Count 248 10^3/uL (140-450) Mean Platelet Volume 7.3 fL (6.9-10.8) Neutrophils (%) (Auto) 73.9 % (37.0-80.0) Lymphocytes (%) (Auto) 14.7 % (10.0-50.0) Monocytes (%) (Auto) 10.8 % (0.0-12.0) Eosinophils (%) (Auto) 0.3 % (0.0-7.0) Basophils (%) (Auto) 0.3 % (0.0-2.0) Neutrophils # (Auto) 4.6 10 ^3/uL (1.6-8.6) Lymphocytes # (Auto) 0.9 10 ^3/uL (0.4-5.4) Monocytes # (Auto) 0.7 10 ^3/uL (0-1.3) Eosinophils # (Auto) 0 10 ^3/uL (0-0.8) Basophils # (Auto) 0 10 ^3/uL (0-0.2) Nucleated Red Blood Cells 0.0 % Hemoglobin A1c 5.1 % A1C (<5.7) Magnesium Level 1.8 mg/dL (1.6-2.6) Triglycerides Level 72 mg/dL (< 150) Cholesterol Level 154 mg/dL (< 200) LDL Cholesterol 77 mg/dL (< 100) HDL Cholesterol 66 mg/dL (40-59) Thyroid Stimulating Hormone (TSH) 0.18 uIU/mL (0.55-4.78) Test 02/23/24 03:15 02/22/24 22:56 02/22/24 22:44 Urine Color Light-yellow (Yellow) Urine Clarity Clear (Clear) Urine pH 5.5 (5.0-9.0) Urine Specific [place] > 1.035 (1.001-1.035) Urine Protein Negative (Negative) Urine Ketones Negative (Negative) Urine Blood Negative /uL (Negative) Urine Nitrite Negative (Negative) Urine Bilirubin Negative (Negative) Urine Urobilinogen Normal mg/dL (Negative) Urine Leukocyte Esterase Negative /uL (Negative) Urine RBC 3 /hpf (0 - 4) Urine WBC 1 /hpf (0 - 5) Urine Squamous Epithelial Cells Few /hpf (<5) Urine Bacteria None seen /hpf (None Seen) Urine Glucose Normal mg/dL (Normal) Urine Test Negative (Negative) Lactic Acid Level 1.9 mmol/L (0.4-2.0) Total Bilirubin 0.7 mg/dL (0.2-1.0) Aspartate Amino Transferase (AST) 14 U/L (13-40) Alanine Aminotransferase (ALT) 17 U/L (7-40) Alkaline Phosphatase 94 U/L (46-116) Total Protein 7.4 g/dL (5.7-8.2) Albumin 4.7 g/dL (3.2-4.8) Lipase 32 U/L (12-53) Influenza Type A Antigen Negative (Negative) Influenza Type B Antigen Negative (Negative) SARS-CoV-2 Antigen (Rapid) Negative (NEGATIVE) Other Laboratory Tests 02/25/24 07:00 02/24/24 16:08 Brief Hx & Hospital Course: History of Present Illness This 38-year-old female presents in the ED with a chief complaint of abdominal pain. Patient reports generalized abdominal pain started yesterday and is associated with nausea, vomiting, and diarrhea. The patient denies chest pain, shortness of breath, hematemesis, or melena. Past medical history of hypertension, anxiety, depression, and tobacco use. Course of hospitalization: Patient was started on empiric antibiotic therapy with Rocephin and Flagyl. White blood cell count has improved. Patient had positive blood culture with Gram-positive cocci. Patient was advanced to regular diet with all of her symptoms resolving. Patient was instructed that until her blood culture has been finalized, recommendations were for her to stay in the hospital received IV antibiotic therapy. The patient decided to leave against medical advice. Physical examination General: Alert and Oriented x3. No acute distress. Well-nourished. Eyes: EOMI. Anicteric. HENT: Moist mucous membranes. Lungs: Clear to auscultation bilaterally. No accessory muscle use. Cardiovascular: Regular rate and rhythm. No murmur. No JVD. Abdomen: Soft, non-tender and non-distended. No palpable masses. Extremities: No edema. Non-tender. Skin: No rashes or lesions. Warm. Neurologic: No focal neurological deficits. CN II-XII grossly intact, but not individually tested. Psychiatric: Cooperative. Appropriate mood and affect. Total time spent with patient discussing and formulating plan of care: 35 minutes. This medical document was created using an electronic medical record system with [employer] system. Although this document has been carefully reviewed, there may still be some phonetic and typographical errors. These areas are purely typographical due to imperfections of the software programs, and do not reflect any compromise in the patient's medical care. Condition at Discharge: Undetermined Final Diagnosis/Problems List Sepsis secondary to acute colitis Secondary Diagnosis: -enteritis/colitis -sepsis -tobacco abuse -primary hypertension -anxiety disorder -depression -obesity Discharge Disposition: AMA 36 Discharge Statement: "Patient was advised to return to the ER or call 911 if any headaches, dizziness, shortness of breath, chest pain, abdominal pain, bleeding, fevers, or worsening of medical condition. Patient was counseled about treatment plan, medications, possible side effects, patientverbalized understanding. All questions were answered to the best of my ability. This discharge took greater then 30 minutes in planning, reviewing documentation, counseling the patient, and discussing with other team members." ASSESSMENT ASSESSMENT Assessment Date of Service: Feb 26, 2024 Billing Provider: ASLINAS BROWN NP Common Visit Codes: [id number] DISCH DAY >30min SALINAS BROWN NP Feb 26, 2024 16:00
== END 2024-02-26 15:17 | disposition left against medical advice (07) | DRG 720 ==
LOC: ER 22:13 → OVERFLOW 02-23 09:20 → ER 02-23 09:23 → WEST WING 02-23 11:12
PROVIDERS: ADMIT Registered Nurse; ATTEND Nurse Practitioner Acute Care
DX: A41.9 Sepsis, unspecified organism (principal); A09 Infectious gastroenteritis and colitis, unspecified; E66.9 Obesity, unspecified; I10 Essential (primary) hypertension; Z53.29 Procedure and treatment not carried out because of patient's decision for other reasons; F32.A Depression, unspecified; F41.9 Anxiety disorder, unspecified; F17.210 Nicotine dependence, cigarettes, uncomplicated; Z20.822 Contact with and (suspected) exposure to COVID-19; Z68.33 Body mass index [BMI] 33.0-33.9, adult; Z79.899 Other long term (current) drug therapy
CPT/HCPCS: 36415; 71046; 74177; 80048; 80053; 80061; 80307; 81001; 81025; 83036; 83605; 83690; 83735; 84443; 85025; 87040; 87077; 87186; 87426; 87804; G0378; J1885; J2405; J2470; J3490